=== PATIENT | male | born 1950 | race Caucasian/White ===

== ENCOUNTER 2025-03-27 03:39 | Emergency (ER) | payer MEDICAID, MEDICARE, OTHER ==
[~2025-03-27] VITALS: Ht 170.2 cm; Wt 82.7 kg
[2025-03-27 03:39] VITALS: BP 181/74; PULSE 74; RESP 20; TEMP 97.8; O2SAT 98
[2025-03-27 04:23] LABS: PLATELET COUNT (AUTO) 191 K/uL (150-450); RED BLOOD CELL COUNT(AUTO) 4.87 MIL/uL (4.50-5.90); RED CELL DISTRIBUTION WIDTH 13.1 % (11.5-14.5); WHITE BLOOD COUNT (AUTO) 6.8 K/uL (4.5-11.0)
[2025-03-27 04:32] LABS: CALCIUM, TOTAL 10.3 mg/dL (8.8-10.5); CREATININE 1.13 mg/dL (0.60-1.30); GLOMERULAR FILTR. RATE CALC > 60 mL/min (>60); GLUCOSE,RANDOM 340 mg/dL (70-110); SODIUM SERUM 137 mmol/L (136-145); UREA NITROGEN, BLOOD 22 mg/dL (7-18)
== END 2025-03-27 05:38 | disposition home or self-care (01) ==
LOC: EMS 04:34
DX: R04.0 Epistaxis (principal); E11.65 Type 2 diabetes mellitus with hyperglycemia; I10 Essential (primary) hypertension; Z79.02 Long term (current) use of antithrombotics/antiplatelets
CPT/HCPCS: 30901; 80048; 85025; 85610; 99284